=== PATIENT | male | born 1965 | race Caucasian/White ===

== ENCOUNTER 2024-11-01 18:51 | Emergency (ER) | payer OTHER, MEDICAID, SELFPAY ==
[2024-11-01 19:14] VITALS: BP 116/80
[2024-11-01 19:21] LABS: % Basophils 0.6 % (0-2); % Immature Granulocytes 0.2 % (0-0.5); % Monocytes 8.7 % (1.7-9.3); % Neutrophils 69.5 % (42.2-75.2); Absolute Basophils 0.1 10^3/uL (0-0.2); Absolute Eosinophils 0.3 10^3/uL (0-0.7); Absolute Lymphocytes 1.4 10^3/uL (1.2-3.4); Absolute Monocytes 0.7 10^3/uL (0.1-0.6); Absolute Neutrophils 5.7 10^3/uL (1.4-6.5); Hematocrit 37.5 % (39.0-52.0); Hemoglobin 12.5 g/dL (13.0-18.0); Mean Corp Hgb Conc. 33.3 g/dL (33.0-37.0); Mean Corpuscular Volume 93.1 fL (80.0-94.0); Mean Platelet Volume 10.1 fL (7.4-10.4); Nucleated Red Blood Cells % 0 % (-); Platelet Count 182 10^3/uL (130-400); Red Blood Cell Count 4.03 10^6/uL (4.70-6.10); White Blood Cell Count 8.2 10^3/uL (4.8-10.8)
[2024-11-01 19:41] LABS: ALT (SGPT) 26 U/L (0-50); AST (SGOT) 93 U/L (17-59); Albumin 4.1 g/dl (3.5-5.0); Alkaline Phosphatase 98 U/L (38-126); Blood Urea Nitrogen 19 mg/dl (9-20); Calcium 8.8 mg/dl (8.4-10.2); Carbon Dioxide 25 mmol/L (22-30); Chloride 108 mmol/L (98-107); Glucose 107 mg/dl (70-99); Potassium 4.3 mmol/L (3.5-5.1); Sodium 142 mmol/L (135-145); Total Bilirubin 0.6 mg/dl (0.2-1.3); Total Protein 6.9 g/dl (6.3-8.2); eGFR > 60.00
[2024-11-01 19:51] LABS: Erythrocyte Sed Rate 22 mm/hour (0-20)
[2024-11-01 20:00] VITALS: BP 116/70
--- NOTE | 2024-11-01 20:00 | ED.SKININJ ---
HPI-Injury
General
Chief Complaint: Skin Problem
Source: patient
Exam Limitations: none
Time Seen by Provider: 11/01/24 18:52
Nursing documentation reviewed up to this point in time: agreed with
History of Present Illness-Injury
Initial Injury comments:
Patient to ED from [place] for evaluation of skin rash. He was noted to have a rash on his scalp which provider thought was shingles. He was placed on Valtrex. SInce then rash continues to spread. He has lam scabs on forhead. Rash starts out as
small vesicles or bullae and then burst and crust over. Rash now noted on chest, neck, and arms. He denies any pain. No reports of fever/chills.Broughtto ED via EMS for eval
Past History
Past History
ED Past Medical History: Asthma, GERD and Psychiatric (anxiety, depression, schizoaffective disorder, bipolar)
Review of Systems
Review of Systems
Allergies reviewed?: Yes
All Other Systems: ROS reviewed and negative except as documented in HPI and ROS
Constitutional: Reports no symptoms
EENT: Reports no symptoms
Respiratory: Reports no symptoms
Cardiac: Reports no symptoms
ABD/GI: Reports no symptoms
Musculoskeletal: Reports no symptoms
Skin: Reports other (multipled gold crusted scabs to scalp and chest. Scattered vesicles and bullae on chest)
Neurological: Reports no symptoms
Psychiatric: Reports no symptoms
Phy Exam
General Physical Exam
General Presentation: well appearing and no apparent distress
General age: appears stated age
General Skin: warm and dry
General Habitus: normal
Cardiovascular Exam
Cardiovascular Exam: regular rate/rhythm and no edema
Pulmonary Exam
Pulmonary Exam: lungs clear and no respiratory distress
Gastrointestinal Exam
Gastrointestinal Exam: non tender and soft
Musculoskeletal Exam
Musculoskeletal Exam: full ROM and neuro vasc intact
Skin Exam
Skin Exam: normal color, warm/dry and other (scattered vesicles and bullae on chest. dry lam crusted scabs on scalp and neck concerning for impetigo.)
Psychiatric Exam
Psychiatric Exam: normal mood/affect
Course
Orders/Labs/Results
Orders:
Orders
11/01/24 19:13
CRP [C-Reactive Protein] Urgent
Complete Blood Count/With Diff Urgent
Comprehensive Metabolic Panel Urgent
Sed Rate [Erythrocyte Sed Rate] Urgent
11/01/24 19:56
Sulfamethox./Trimethoprim Ds [Bactrim Ds 800 mg/160 mg] 1 tablet PO NOW STA
11/01/24 20:14
Wound Culture [Wound/Abscess/Other Culture] Urgent
FABIAN Source: Chest
Specimen Description: Right
Date Specimen was Collected: 11/01/24
Time Specimen was Collected: 20:08
Abnormal Lab Results
11/01/24
19:13
RBC 4.03 L 10^6/uL
(4.70-6.10)
Hgb 12.5 L g/dL
(13.0-18.0)
Hct 37.5 L %
(39.0-52.0)
Absolute Monos (auto) 0.7 H 10^3/uL
(0.1-0.6)
Lymphocytes % 17.0 L %
(20.5-51.1)
ESR 22 H mm/hour
(0-20)
Chloride 108 H mmol/L
(98-107)
Glucose 107 H mg/dl
(70-99)
AST 93 H U/L
(17-59)
C-Reactive Protein 45.40 H mg/L
(0.0-10.00)
11/01/24 19:13
11/01/24 19:13
Vital Signs
Initial and Last Documented VS:
Initial Vital Signs
Temp
98.5 F
11/01/24 18:59
Last Documented Vital Signs
Temp BP Pulse Ox
98.5 F 122/88 100
11/01/24 18:59 11/01/24 23:54 11/01/24 19:59
*Pulse Oximetry
Patient hypoxic: no
*Critical Care Note
Total Time (30-74mins, 75-104mins- exclusive of procedures): Not Applicable
Update Note
Update Note:
Patient to ED for eval of skin rash. He first developed grouped vesicles on right side of scalp. Provider felt this was most likely a shingles outbreak and placed hm on Valtrex. Since then he has developed vesicles and bullae to neck and chest,
bilaterally. Some bullae have drained and a yellow crust/scab remains concerning for impetigo. Will start bactrim DS in dept, recommend mupirocin ointment 2-3x daily. He is discharged back to [facility]. Instructions provided for s/s to return to ED.
ED Attending Note
-
Portions of this chart may have been created with voice recognition software.� Occasional wrong word or��sound alike� substitutions may have occurred due to the inherent limitations of voice recognition software.
Discharge Plan
Departure
Patient Disposition: Home (Routine Discharge)
Date of Disposition: 11/01/24
Time of Disposition: 19:56
Patient with high blood pressure during this ER visit?: No
Condition: Good
Covid-19: Not Applicable
Discharge Problem:
Impetigo
Instructions: Wound Care (DC), Impetigo - ED discharge instructions
Prescriptions:
New
sulfamethoxazole-trimethoprim [Bactrim DS] 800-160 mg tablet
1 tab PO BID Qty: 20 0RF
mupirocin 2 % ointment
1 applic topical TID Qty: 22 0RF
Referrals:
Celestine Dominguez, DO [Family Provider] - Follow up in 2-3 days
Interventions
Interventions:
*Risk Screen - Suicide Last Done: 11/01/24 18:59
*General Assessment Last Done: 11/01/24 18:59
*Neglect/Abuse Screening Last Done: 11/01/24 18:59
*ED- Fall Risk Assessment Last Done: 11/01/24 18:59
*ED COVID-19 Vaccine History Last Done: 11/01/24 18:59
*Nursing Disposition Last Done: 11/02/24 00:02
ED-Skin Assessment Last Done: 11/01/24 18:59
Discharge Date and Time
Discharge Date/Time: 11/02/24 00:02
Print Language: KAZAKH
[2024-11-01] MEDS: BACTRIM DS 800 MG/160 MG 1 TABLET PO (20:09)
[2024-11-01 21:00] VITALS: BP 103/67
[2024-11-01 22:00] VITALS: BP 99/69
[2024-11-01 23:54] VITALS: BP 122/88
== END 2024-11-02 00:02 ==
LOC: EMR 18:51
PROVIDERS: Nurse Practitioner; EMERGENCY PHYSICIAN Emergency Medicine; FAMILY PHYSICIAN Internal Medicine
DX: L01.00 Impetigo, unspecified (principal); J45.909 Unspecified asthma, uncomplicated
CPT/HCPCS: 99283; 80053; 85025; 85652; 86140; 87070; 87205

== ENCOUNTER 2025-02-09 03:12 | Emergency (ER) | payer OTHER, SELFPAY ==
[2025-02-09 03:13] VITALS: BP 137/94
[2025-02-09 04:35] VITALS: BMI 23.2
[2025-02-09 04:37] VITALS: BP 134/92
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
[2025-02-09] MEDS: MOTRIN 400 MG PO (05:49)
[2025-02-09 08:00] VITALS: BP 142/84
== END 2025-02-09 10:47 | disposition home or self-care (01) ==
LOC: EMR 03:12
PROVIDERS: EMERGENCY PHYSICIAN Emergency Medicine; FAMILY PHYSICIAN Internal Medicine
DX: R51.9 Headache, unspecified (principal); G31.84 Mild cognitive impairment of uncertain or unknown etiology; F20.9 Schizophrenia, unspecified; F41.9 Anxiety disorder, unspecified; F31.9 Bipolar disorder, unspecified; J45.909 Unspecified asthma, uncomplicated; K21.9 Gastro-esophageal reflux disease without esophagitis; Y04.2XXA Assault by strike against or bumped into by another person, initial encounter; Y92.122 Bedroom in nursing home as the place of occurrence of the external cause; Z59.2 Discord with neighbors, lodgers and landlord
CPT/HCPCS: 99284; 70486

== ENCOUNTER 2025-02-21 12:09 | Emergency (ER) | payer OTHER, SELFPAY ==
[2025-02-21] VITALS (8 sets, daily range): BP systolic 111–144; BP diastolic 80–105; BMI 23.8
--- NOTE | 2025-02-21 12:15 | ED.MUSCINJ ---
HPI-Injury
General
Chief Complaint: Fall
Source: patient
Exam Limitations: none
Time Seen by Provider: 02/21/25 12:11
History of Present Illness-Injury
Initial Injury comments:
Patient is a 59-year-old male with history of mild cognitive impairment, asthma, schizophrenia presents from [facility] after a fall. He was walking and tripped and fell hitting left side of his head. They noticed a bump of the left
eyebrow. No reported loss conscious denies headache or neck pain. No arm or leg pain. He is not anticoagulated. No other plaints
Past History
Past History
ED Past Medical History: Asthma, GERD and Psychiatric (anxiety, depression, schizoaffective disorder, bipolar)
Phy Exam
Physical Exam
Physical Exam:
General: Well-appearing male no acute respiratory distress
HEENT normocephalic hematoma with small abrasion noted to the left eyebrow pupils equal round reactive to light
Heart: Regular rate and rhythm
Lungs: Clear no wheeze
Abdomen is soft nontender
Musculoskeletal exam: The spine is nontender no deformities to the extremities
Injury Course
Orders/Labs/Results
Orders:
Orders
02/21/25 12:15
CT Head W/o Iv Contrast Urgent
Comment:
Reason For Exam: fall
MDM/Problems Addressed
Differential Diagnosis Includes:
Fall with head strike. Consider hematoma versus fracture versus intracranial hemorrhage. CT of the head pending.
*Pulse Oximetry
Patient hypoxic: no
*Critical Care Note
Total Time (30-74mins, 75-104mins- exclusive of procedures): Not Applicable
Update Note
Update Note:
CT head negative for acute traumatic injury. Patient stable for discharge back to facility
ED Attending Note
-
Portions of this chart may have been created with voice recognition software.� Occasional wrong word or��sound alike� substitutions may have occurred due to the inherent limitations of voice recognition software.
Discharge Plan
Departure
Patient Disposition: Home (Routine Discharge)
Date of Disposition: 02/21/25
Time of Disposition: 13:46
Patient with high blood pressure during this ER visit?: No
Discharge Problem:
Contusion
Instructions: Contusion (DC)
Prescriptions:
No Action
sulfamethoxazole-trimethoprim [Bactrim DS] 800-160 mg tablet
1 tab PO BID Qty: 20 0RF
mupirocin 2 % ointment
1 applic topical TID Qty: 22 0RF
Referrals:
Celestine Dominguez DO [Family Provider, Internal Medicine]
Activity Restrictions/Additional Instructions:
You may ice to the sore spot. You may take Tylenol if needed for pain. Return here if needed
Interventions
Interventions:
*Risk Screen - Suicide Last Done: 02/21/25 12:16
*General Assessment Last Done: 02/21/25 12:16
*Neglect/Abuse Screening Last Done: 02/21/25 12:16
*ED- Fall Risk Assessment Last Done: 02/21/25 12:16
*ED COVID-19 Vaccine History Last Done: 02/21/25 12:16
ED-Musculoskeletal Assessment Last Done: 02/21/25 12:19
ED- Neurological Assessment Last Done: 02/21/25 12:19
ED-Skin Assessment Last Done: 02/21/25 12:19
Discharge Date and Time
Print Language: PERSIAN
== END 2025-02-21 19:30 | disposition home or self-care (01) ==
LOC: EMR 12:09
PROVIDERS: EMERGENCY PHYSICIAN Emergency Medicine; FAMILY PHYSICIAN Internal Medicine
DX: S00.12XA Contusion of left eyelid and periocular area, initial encounter (principal); W01.0XXA Fall on same level from slipping, tripping and stumbling without subsequent striking against object, initial encounter; Y93.01 Activity, walking, marching and hiking; G31.84 Mild cognitive impairment of uncertain or unknown etiology; J45.909 Unspecified asthma, uncomplicated; F25.9 Schizoaffective disorder, unspecified; K21.9 Gastro-esophageal reflux disease without esophagitis; F41.8 Other specified anxiety disorders; F31.9 Bipolar disorder, unspecified
CPT/HCPCS: 99284; 70450

== ENCOUNTER 2025-04-14 05:56 | Emergency (ER) | payer OTHER, MEDICAID, SELFPAY ==
[2025-04-14] VITALS (7 sets, daily range): BP systolic 108–125; BP diastolic 82–94; BMI 22.8
--- NOTE | 2025-04-14 06:32 | ED.GENMED ---
History of Present Illness
General
Chief Complaint: Fall
Source: patient
Exam Limitations: dementia
Time Seen by Provider: 04/14/25 06:22
History of Present Illness
History of Present Illness:
59yoM with a history of mild cognitive impairment, schizoaffective disorder, and frequent falls presenting via EMS for evaluation after a fall. Patient is a resident at [facility]. He reports that he slid out of bed and struck his head. He denies
LOC. He arrives with hematoma above the left eyebrow. He has no complaints at this time and denies any dizziness, visual changes, vomiting, chest pain, shortness of breath. I called and spoke with detention staff who state he was on the ground
5-10 minutes at most because they do rounds frequently. No other concerns reported. He does not take any blood thinners. He is in a wheelchair at baseline.
Past History
Past History
ED Past Medical History: Asthma, GERD and Psychiatric (anxiety, depression, schizoaffective disorder, bipolar)
Phy Exam
General Physical Exam
General Presentation: no apparent distress
General Skin: warm and dry
General Habitus: normal
General Mental: alert
ENT Exam
ENT Exam: other (Hematoma noted above L eyebrow with scattered abrasions. No areas that require suture repair. )
Additional ENT: No cervical spine tenderness
Eye Exam
Eye Exam: PERRL and conjunctiva normal
Pulmonary Exam
Pulmonary Exam: lungs clear, no respiratory distress, no rales, chest non tender, no crackles and no rhonchi
Gastrointestinal Exam
Gastrointestinal Exam: non tender, soft and non distended
Neurological Exam
Neurological Exam: alert
Reddell Coma Scale
Eye Opening: Spontaneous
Verbal Response: Oriented
Motor Response: Obeys Commands
GCS Total Score: 15
Musculoskeletal Exam
Musculoskeletal Exam: other (No C/T/L spine tenderness or step-offs.)
Skin Exam
Skin Exam: warm/dry and other (Abrasions/erythema noted to L forearm)
Psychiatric Exam
Psychiatric Exam: normal mood/affect
Course
Orders/Labs/Results
Orders:
Orders
04/14/25 06:30
CT Cervical Spine W/o Iv Contr Urgent
Comment:
Reason For Exam: fall, head injury
CT Facial Bones W/o Iv Contras Urgent
Comment:
Reason For Exam: fall, L periorbital swelling
CT Head W/o Iv Contrast Urgent
Comment:
Reason For Exam: fall, head injury
Tetanus/Diphth/Acelpertussis [Adacel] 0.5 ml IM .ONCE ONE
CR Forearm - Left 2 View Urgent
Comment:
Reason For Exam: injury
Vital Signs
Initial and Last Documented VS:
Initial Vital Signs
Temp Pulse BP Pulse Ox
97.8 F 95 125/91 99
04/14/25 06:08 04/14/25 06:08 04/14/25 06:08 04/14/25 06:08
Last Documented Vital Signs
Temp Pulse Resp BP Pulse Ox
97.8 F 103 12 125/90 99
04/14/25 06:08 04/14/25 11:45 04/14/25 11:45 04/14/25 11:00 04/14/25 08:45
MDM/Problems Addressed
Differential Diagnosis Includes:
59yoM here after a fall out of bed with head strike. Arrives with a hematoma above L eyebrow. Hx of frequent falls, in wheelchair, resident at [facility]. VSS. He is awake and alert. L forearm erythema/abrasions noted on exam. Differential diagnosis
includes: hematoma, fracture, intracranial hemorrhage
Initial ED plan: Check CT head, CT cervical spine, CT facial bones, and L forearm x-rays. Tdap ordered.
*Pulse Oximetry
SaO2: 99
Oxygen Mode of Delivery: Room air
Patient hypoxic: no
*Critical Care Note
Total Time (30-74mins, 75-104mins- exclusive of procedures): Not Applicable
Update Note
Update Note:
Imaging negative for traumatic injuries. Patient stable for discharge back to his nursing facility.
ED Attending Note
-
Portions of this chart may have been created with voice recognition software.� Occasional wrong word or��sound alike� substitutions may have occurred due to the inherent limitations of voice recognition software.
Discharge Plan
Departure
Patient Disposition: Home (Routine Discharge)
Date of Disposition: 04/14/25
Time of Disposition: 08:59
Patient with high blood pressure during this ER visit?: No
Discharge Problem:
Accidental fall from bed, Periorbital hematoma of left eye
Instructions: Head Injury in Adults (DC)
Prescriptions:
No Action
sulfamethoxazole-trimethoprim [Bactrim DS] 800-160 mg tablet
1 tab PO BID Qty: 20 0RF
mupirocin 2 % ointment
1 applic topical TID Qty: 22 0RF
Referrals:
Monica Kaufman MD [Family Provider]
Activity Restrictions/Additional Instructions:
CT of the head, facial bones, and cervical spine are negative for fractures and bleeding. Apply ice to help with swelling.
Please follow-up with family doctor and return to the ER with any new or worsening symptoms.
Interventions
Interventions:
*General Assessment Last Done: 04/14/25 06:41
*Neglect/Abuse Screening Last Done: 04/14/25 11:57
*ED- Fall Risk Assessment Last Done: 04/14/25 06:06
*ED COVID-19 Vaccine History Last Done: 04/14/25 06:41
*ED Influenza Vaccine History Last Done: 04/14/25 06:41
*Nursing Disposition Last Done: 04/14/25 11:57
ED-Musculoskeletal Assessment Last Done: 04/14/25 06:41
ED- Neurological Assessment Last Done: 04/14/25 06:41
ED-Skin Assessment Last Done: 04/14/25 06:41
Discharge Date and Time
Discharge Date/Time: 04/14/25 11:59
Print Language: KOREAN
[2025-04-14] MEDS: ADACEL 0.5 ML IM (07:09)
== END 2025-04-14 11:59 | disposition home or self-care (01) ==
LOC: EMR 05:56
PROVIDERS: EMERGENCY PHYSICIAN Emergency Medicine; FAMILY PHYSICIAN Internal Medicine
DX: S00.12XA Contusion of left eyelid and periocular area, initial encounter (principal); S50.812A Abrasion of left forearm, initial encounter; W06.XXXA Fall from bed, initial encounter; F03.93 Unspecified dementia, unspecified severity, with mood disturbance; J45.909 Unspecified asthma, uncomplicated; Z23 Encounter for immunization
CPT/HCPCS: 90471; 99284; 70450; 70486; 72125; 73090; 90715